=== PATIENT | female | born 1995 | race Two or more races ===

== ENCOUNTER 2018-08-29 11:41 | Emergency (ER) | payer OTHER ==
[~2018-08-29] VITALS: Ht 165.1 cm; Wt 50.8 kg
[2018-08-29] MEDS ORDERED: ZANTAC25 MG/1 ML IJ (12:18)
== END 2018-08-29 14:29 | disposition home or self-care (01) ==
LOC: ER 11:41
DX: B34.9 Viral infection, unspecified (principal)

== ENCOUNTER 2019-11-28 11:36 | Emergency (ER) | payer OTHER ==
[~2019-11-28] VITALS: Ht 165.1 cm; Wt 52.2 kg
[~2019-11-28 11:36] MED LIST: ZANTAC25 MG/1 ML IJ
[2019-11-28] MEDS ORDERED: CARAFATE1 GM PO (16:19)
[2019-11-28] MEDS ORDERED: PEPCID AC20 MG PO (16:19)
== END 2019-11-28 17:35 | disposition home or self-care (01) ==
LOC: ER 11:36
DX: K52.89 Other specified noninfective gastroenteritis and colitis (principal)